=== PATIENT | male | born 1990 | race Caucasian/White ===

== ENCOUNTER → 2018-09-05 | Outpatient (CLI) | payer BC ==
--- NOTE | 2018-09-06 07:49 | US ---
EXAMINATION TYPE: US renals and bladder DATE OF EXAM: 09/05/2018 COMPARISON: NONE CLINICAL HISTORY: R31.9 Blood in urine R31.9 Hematuria. Rt flank pain hematuria. EXAM MEASUREMENTS: Right Kidney: 11.3 x 4.8 x 4.6 cm Left Kidney: 10.2 x 4.6 x 4.4 cm Right Kidney: Anechoic area mid pole measuring 2.0 x 1.4 x 2.4cm. Left Kidney: No hydronephrosis or masses seen Bladder: wnl Bilateral Jets seen: Yes There is minimal right-sided hydronephrosis. No nephrolithiasis is seen. No masses are identified. The urinary bladder is anechoic. Bilateral ureteral jets are seen. IMPRESSION: Minimal right hydronephrosis and probable 2.4 cm right renal sinus cysts. No nephrolithiasis is seen bilaterally.
== END | disposition home or self-care (01) ==
LOC: RADUSMAIN 16:57
PROVIDERS: ATTEND Family Medicine
DX: R31.9 Hematuria, unspecified (principal)
CPT/HCPCS: 76770

== ENCOUNTER → 2018-10-21 | Outpatient (CLI) | payer BC ==
--- NOTE | 2018-10-21 14:59 | XR ---
Abdomen HISTORY: Right renal stone Frontal view of the abdomen submitted on 2 images. Lung bases are clear. There is a spinal curvature. Probable phleboliths present within the pelvis. Vikram wel gas may obscure detail. No evident bowel obstruction or pneumoperitoneum. IMPRESSION: Multiple calcifications are present within the pelvis.
== END | disposition home or self-care (01) ==
LOC: RADXRMAIN 10:39
PROVIDERS: ATTEND Urology
DX: N28.89 Other specified disorders of kidney and ureter (principal)
CPT/HCPCS: 74018